=== PATIENT | male | born 1945 | race Caucasian/White ===

== ENCOUNTER 2019-07-22 19:50 | Inpatient (IN) ==
[2019-07-22] MEDS ORDERED: Naloxone 0.4 MG/ML INJ IVP PRN (21:56)
[2019-07-22 22:53] LABS: Calcium 8.1 mg/dL (8.6-10.3); Potassium 4.8 mEq/L (3.5-5.1)
[2019-07-23] MEDS ORDERED: 0.9 % Sodium Chloride 250 ML IVC ONE (01:09)
[2019-07-23] MEDS ORDERED: *HR* Heparin 5,000 UNIT/ML VIAL IVP PRN (01:44)
[2019-07-23] MEDS: Heparin 25,000 UNIT/250 ML D5W 25,000 UNIT/250 ML IV.SOLN IVC SCH (02:01)
[2019-07-23 05:06] LABS: Bilirubin,Urine Negative (Negative); Blood,Urine Large (Negative); Clarity,Urine Clear (Clear); Color,Urine Yellow (Yellow); Glucose,Urine (UA) Normal (Normal); Ketones,Urine Negative (Negative); Leukocyte Esterase,Urine Negative (Negative); Nitrite,Urine Negative (Negative); Protein,Urine 30 mg/dL (Neg-Trace); Specific Gravity,Urine 1.013 (1.010-1.025); Urobilinogen,Urine Normal (Normal)
[2019-07-23 05:07] LABS: Bacteria,Urine None Seen per hpf (None-Few); Hyaline Casts,Urine None Seen per lpf (None-Few); RBC,Urine 50-100 per hpf (0-3); Squamous Epithelial Cell,Urine Moderate per lpf (None-Few)
[2019-07-23 05:26] LABS: Basophils % 0.3 %; Eosinophils # 0.1 K/mcL (0.0-0.6); Eosinophils % 0.9 %; Hematocrit 24.2 % (37.5-50.1); Hemoglobin 7.4 g/dL (12.9-16.9); Immature Granulocytes % 0.3 % (0-4); Lymphocytes % 17.5 %; Mean Corpuscular HGB Conc 30.6 g/dL (31.6-35.5); Mean Corpuscular Hemoglobin 25.5 pg (28.0-33.3); Mean Corpuscular Volume 83.4 fL (83.0-100.0); Monocytes % 16.8 %; Neutrophils # 3.7 K/mcL (1.6-8.9); Platelet Count 133 K/mcL (140-400); Red Cell Distribution Width 15.9 % (11.5-14.5); Segmented Neutrophils % 64.2 %; White Blood Count 5.8 K/mcL (4.3-11.1)
[2019-07-23 05:34] LABS: Heparin anti-factor XA UFH 0.1 IU/mL (0.30-0.70); INR 1.3; Prothrombin Time 15.1 Seconds (9.4-12.1)
[2019-07-23 05:37] LABS: Activated Partial Thrombo Time 42.4 Seconds (26.0-36.0)
[2019-07-23 05:46] LABS: Potassium 4.5 mEq/L (3.5-5.1)
[2019-07-23 05:47] LABS: Albumin 2.9 g/dL (3.5-5.7); Bilirubin,Total 0.4 mg/dL (0.3-1.0); Calcium 8.1 mg/dL (8.6-10.3); Globulin 2.8 g/dL (2.4-3.5); Magnesium 1.9 mg/dL (1.6-2.6); Phosphorous 4.1 mg/dL (2.7-4.5); Total Protein 5.7 g/dL (6.4-8.9)
[2019-07-23] MEDS: 0.9 % Sodium Chloride 1,000 ML IVC SCH (08:53)
[2019-07-23] MEDS: Divalproex (24 HR) 500 MG TABLET PO SCH (08:55)
[2019-07-23] MEDS: Cholecalciferol (D-3) 1,000 UNIT (25MCG) TABLET PO SCH (08:55)
[2019-07-23] MEDS: OLANZapine 5 MG TAB.RAPDIS PO SCH (08:55)
[2019-07-23] MEDS: Acyclovir 200 MG CAPSULE PO SCH ×2 (09:07→22:42)
[2019-07-23 09:36] LABS: Adenovirus Not Detected (Not Detect); Bordetella Pertussis Not Detected (Not Detect); Chlamydophila pneumoniae Not Detected (Not Detect); Coronavirus 229E Not Detected (Not Detect); Coronavirus HKU1 Not Detected (Not Detect); Coronavirus NL63 Not Detected (Not Detect); Coronavirus OC43 Not Detected (Not Detect); Human Metapneumovirus Not Detected (Not Detect); Human Rhinovirus/Enterovirus Not Detected (Not Detect); Influenza A Subtype 2009 H1 Not Detected (Not Detect); Influenza A Untypeable Not Detected (Not Detect); Influenza B Not Detected (Not Detect); Mycoplasma pneumoniae Not Detected (Not Detect); Parainfluenza Virus 1 Not Detected (Not Detect); Parainfluenza Virus 2 Not Detected (Not Detect); Parainfluenza Virus 3 Not Detected (Not Detect); Parainfluenza Virus 4 Not Detected (Not Detect); Respiratory Syncytial Virus Not Detected (Not Detect)
[2019-07-23] MEDS ORDERED: Haloperidol Lactate 5 MG/ML VIAL IVP ONE (13:36)
[2019-07-23] MEDS ORDERED: Haloperidol Lactate 5 MG/ML VIAL ONE (13:37)
[2019-07-23] MEDS ORDERED: *HR* LORazepam 2 MG/ML VIAL IVP PRN (14:21)
[2019-07-23] MEDS: Haloperidol Lactate 5 MG/ML VIAL IVP PRN (15:15)
[2019-07-23] MEDS: Ziprasidone 20 MG in Water for inj. (sterile) 1 ML IM PRN (16:35)
[2019-07-23 17:55] LABS: Hematocrit 23.9 % (37.5-50.1); Hemoglobin 7.1 g/dL (12.9-16.9)
[2019-07-23 18:09] LABS: Calcium 8.1 mg/dL (8.6-10.3); Potassium 4.3 mEq/L (3.5-5.1)
[2019-07-23] MEDS: *HR* Heparin 5,000 UNIT/ML VIAL IVP PRN (18:26)
[2019-07-23] MEDS ORDERED: 0.9 % Sodium Chloride 250 ML ONE (22:18)
[2019-07-24] MEDS ORDERED: 0.9 % Sodium Chloride 250 ML ONE (00:58)
[2019-07-24] MEDS: Haloperidol Lactate 5 MG/ML VIAL IVP PRN ×3 (01:49→22:44)
[2019-07-24] MEDS: *HR* Heparin 5,000 UNIT/ML VIAL IVP PRN ×3 (01:50→23:22)
[2019-07-24] MEDS: Heparin 25,000 UNIT/250 ML D5W 25,000 UNIT/250 ML IV.SOLN IVC SCH ×2 (01:55→23:12)
[2019-07-24] MEDS: 0.9 % Sodium Chloride 1,000 ML IVC SCH ×3 (04:21→22:49)
[2019-07-24] MEDS: Acyclovir 200 MG CAPSULE PO SCH ×3 (07:49→21:30)
[2019-07-24] MEDS: OLANZapine 5 MG TAB.RAPDIS PO SCH (07:49)
[2019-07-24] MEDS: Cholecalciferol (D-3) 1,000 UNIT (25MCG) TABLET PO SCH (07:50)
[2019-07-24] MEDS: Divalproex (24 HR) 500 MG TABLET PO SCH (07:50)
[2019-07-24] MEDS: Loratadine 10 MG TABLET PO SCH (07:50)
[2019-07-24] MEDS ORDERED: Perflutren Lipid Microsphere 1.3 ML in 0.9 % Sodium Chloride 8.7 ML IVP ONE (09:07)
[2019-07-24 09:32] LABS: Basophils % 0.4 %; Eosinophils # 0.4 K/mcL (0.0-0.6); Eosinophils % 7.9 %; Hematocrit 33.7 % (37.5-50.1); Immature Granulocytes % 0.2 % (0-4); Lymphocytes # 0.9 K/mcL (0.6-4.6); Lymphocytes % 19.2 %; Mean Corpuscular HGB Conc 30.9 g/dL (31.6-35.5); Mean Corpuscular Hemoglobin 26.9 pg (28.0-33.3); Mean Corpuscular Volume 87.1 fL (83.0-100.0); Mean Platelet Volume 10.6 fL (9.4-12.4); Monocytes # 0.6 K/mcL (0.0-1.3); Monocytes % 12.3 %; Neutrophils # 2.9 K/mcL (1.6-8.9); Platelet Count 162 K/mcL (140-400); Red Blood Count 3.87 M/mcL (4.19-5.50); Red Cell Distribution Width 15.3 % (11.5-14.5); White Blood Count 4.8 K/mcL (4.3-11.1)
[2019-07-24 09:53] LABS: Calcium 8.6 mg/dL (8.6-10.3); Potassium 4.1 mEq/L (3.5-5.1)
[2019-07-24 09:55] LABS: Hemoglobin 10.4 g/dL (12.9-16.9)
[2019-07-24] MEDS ORDERED: DiphenhydraMINE CREAM 28.4 GM TUBE TP PRN (17:29)
[2019-07-25] MEDS: Haloperidol Lactate 5 MG/ML VIAL IVP PRN (05:08)
[2019-07-25] MEDS ORDERED: Haloperidol Lactate 5 MG/ML VIAL IVP ONE (05:44)
[2019-07-25] MEDS ORDERED: *HR* Promethazine 25 MG/ML VIAL IVP ONE (05:48)
[2019-07-25 06:35] LABS: Basophils % 0.3 %; Eosinophils # 0.5 K/mcL (0.0-0.6); Eosinophils % 6.7 %; Hematocrit 32.8 % (37.5-50.1); Hemoglobin 10.1 g/dL (12.9-16.9); Immature Granulocytes % 0.4 % (0-4); Immature Reticulocyte % 5.2 % (11.0-38.0); Lymphocytes # 3.1 K/mcL (0.6-4.6); Lymphocytes % 44.4 %; Mean Corpuscular HGB Conc 30.8 g/dL (31.6-35.5); Mean Corpuscular Hemoglobin 26.4 pg (28.0-33.3); Mean Corpuscular Volume 85.6 fL (83.0-100.0); Mean Platelet Volume 10.7 fL (9.4-12.4); Monocytes # 0.8 K/mcL (0.0-1.3); Monocytes % 11.3 %; Neutrophils # 2.6 K/mcL (1.6-8.9); Platelet Count 189 K/mcL (140-400); Red Blood Count 3.83 M/mcL (4.19-5.50); Red Cell Distribution Width 15.4 % (11.5-14.5); Retculocyte # 0.02 M/mcL (0.05-0.10); Reticulocyte % 0.6 % (1.6-2.8); Segmented Neutrophils % 36.9 %; White Blood Count 7.1 K/mcL (4.3-11.1)
[2019-07-25 06:58] LABS: Calcium 8.6 mg/dL (8.6-10.3); Phosphorous 2.3 mg/dL (2.7-4.5); Potassium 4.2 mEq/L (3.5-5.1)
[2019-07-25 07:24] LABS: Folate > 22.3 ng/mL (3.0-16.0); Vitamin B12 1455 pg/mL (250-1100)
[2019-07-25] MEDS: Divalproex (24 HR) 500 MG TABLET PO SCH (07:27)
[2019-07-25] MEDS: Acyclovir 200 MG CAPSULE PO SCH (07:27)
[2019-07-25] MEDS: OLANZapine 5 MG TAB.RAPDIS PO SCH (07:27)
[2019-07-25] MEDS: Cholecalciferol (D-3) 1,000 UNIT (25MCG) TABLET PO SCH (07:28)
[2019-07-25] MEDS: Loratadine 10 MG TABLET PO SCH (07:30)
[2019-07-25] MEDS: Heparin 25,000 UNIT/250 ML D5W 25,000 UNIT/250 ML IV.SOLN IVC SCH (07:31)
[2019-07-25] MEDS ORDERED: SODIUM CHLORIDE/NAHCO3/KCL/PEG 4,000 ML SOLN.RECON PO ONE (17:00)
[2019-07-25] MEDS: 0.9 % Sodium Chloride 1,000 ML IVC SCH (17:08)
[2019-07-26] MEDS: Heparin 25,000 UNIT/250 ML D5W 25,000 UNIT/250 ML IV.SOLN IVC SCH ×2 (01:52→19:21)
[2019-07-26] MEDS: Haloperidol Lactate 5 MG/ML VIAL IVP PRN ×2 (01:52→08:30)
[2019-07-26] MEDS: Divalproex (24 HR) 500 MG TABLET PO SCH (08:44)
[2019-07-26] MEDS: OLANZapine 5 MG TAB.RAPDIS PO SCH (08:44)
[2019-07-26] MEDS: Loratadine 10 MG TABLET PO SCH (08:45)
[2019-07-26] MEDS: Cholecalciferol (D-3) 1,000 UNIT (25MCG) TABLET PO SCH (08:46)
[2019-07-26 09:00] LABS: Basophils % 0.2 %; Eosinophils # 0.4 K/mcL (0.0-0.6); Eosinophils % 7.3 %; Hematocrit 31.5 % (37.5-50.1); Hemoglobin 9.8 g/dL (12.9-16.9); Immature Granulocytes % 0.4 % (0-4); Lymphocytes # 1.2 K/mcL (0.6-4.6); Lymphocytes % 24.8 %; Mean Corpuscular HGB Conc 31.1 g/dL (31.6-35.5); Mean Corpuscular Hemoglobin 26.4 pg (28.0-33.3); Mean Corpuscular Volume 84.9 fL (83.0-100.0); Mean Platelet Volume 10.1 fL (9.4-12.4); Monocytes # 0.6 K/mcL (0.0-1.3); Monocytes % 11.6 %; Neutrophils # 2.7 K/mcL (1.6-8.9); Platelet Count 217 K/mcL (140-400); Red Blood Count 3.71 M/mcL (4.19-5.50); Red Cell Distribution Width 15.5 % (11.5-14.5); Segmented Neutrophils % 55.7 %; White Blood Count 4.9 K/mcL (4.3-11.1)
[2019-07-26 09:07] LABS: INR 1.3
[2019-07-26 09:22] LABS: BUN/Creatinine Ratio 10 (6-26); Blood Urea Nitrogen 12 mg/dL (8-23); Calcium 8.2 mg/dL (8.6-10.3); Carbon Dioxide 22 mEq/L (23-29); Chloride 111 mEq/L (98-107); Glucose 118 mg/dL (70-105); Osmolality,Calculated 297 (280-300); Potassium 3.6 mEq/L (3.5-5.1); Sodium 143 mEq/L (136-145); Troponin I 4.37 ng/mL (< 0.04); eGFR For African Americans > 60 (> 60); eGFR For Non-African Americans 56 (> 60)
[2019-07-26] MEDS: Ziprasidone 20 MG in Water for inj. (sterile) 1 ML IM PRN (11:47)
[2019-07-26] MEDS ORDERED: *HR* LORazepam 2 MG/ML VIAL IVP ONE (12:55)
[2019-07-26] MEDS ORDERED: Propofol 500 MG/50 ML INFUS..BTL ONE (13:33)
[2019-07-26] MEDS ORDERED: 0.9 % Sodium Chloride 500 ML ONE (15:58)
[2019-07-26] MEDS: 0.9 % Sodium Chloride 1,000 ML IVC SCH (17:43)
[2019-07-26] MEDS: Acyclovir 600 MG in D5% in Water 100 ML IVPB SCH (20:09)
[2019-07-27 01:38] LABS: Basophils % 0.4 %; Eosinophils # 0.4 K/mcL (0.0-0.6); Eosinophils % 7.7 %; Hematocrit 30.2 % (37.5-50.1); Hemoglobin 9.3 g/dL (12.9-16.9); Immature Granulocytes % 0.2 % (0-4); Lymphocytes # 1.3 K/mcL (0.6-4.6); Lymphocytes % 25.8 %; Mean Corpuscular HGB Conc 30.8 g/dL (31.6-35.5); Mean Corpuscular Hemoglobin 26.2 pg (28.0-33.3); Mean Corpuscular Volume 85.1 fL (83.0-100.0); Monocytes # 0.5 K/mcL (0.0-1.3); Monocytes % 10.8 %; Neutrophils # 2.7 K/mcL (1.6-8.9); Platelet Count 215 K/mcL (140-400); Red Blood Count 3.55 M/mcL (4.19-5.50); Red Cell Distribution Width 15.5 % (11.5-14.5); Segmented Neutrophils % 55.1 %; White Blood Count 4.9 K/mcL (4.3-11.1)
[2019-07-27 01:58] LABS: BUN/Creatinine Ratio 10 (6-26); Blood Urea Nitrogen 12 mg/dL (8-23); Carbon Dioxide 20 mEq/L (23-29); Chloride 113 mEq/L (98-107); Glucose 81 mg/dL (70-105); Osmolality,Calculated 293 (280-300); Potassium 3.6 mEq/L (3.5-5.1); Sodium 142 mEq/L (136-145); eGFR For African Americans > 60 (> 60); eGFR For Non-African Americans 59 (> 60)
[2019-07-27] MEDS: *HR* Heparin 5,000 UNIT/ML VIAL IVP PRN (02:15)
[2019-07-27] MEDS: Acyclovir 600 MG in D5% in Water 100 ML IVPB SCH (06:31)
[2019-07-27] MEDS ORDERED: Aspirin 81 MG TAB.CHEW PO SCH (10:08)
[2019-07-27] MEDS ORDERED: 0.9 % Sodium Chloride 1,000 ML ONE (10:22)
[2019-07-27] MEDS: Cholecalciferol (D-3) 1,000 UNIT (25MCG) TABLET PO SCH (10:48)
[2019-07-27] MEDS: Divalproex (24 HR) 500 MG TABLET PO SCH (10:48)
[2019-07-27] MEDS: Loratadine 10 MG TABLET PO SCH (10:48)
[2019-07-27] MEDS: OLANZapine 5 MG TAB.RAPDIS PO SCH (10:48)
[2019-07-27] MEDS: 0.9 % Sodium Chloride 1,000 ML IVC SCH (10:50)
[2019-07-27] MEDS ORDERED: Acyclovir 600 MG in D5% in Water 100 ML IVPB SCH (16:00)
[2019-07-27 16:21] VITALS: BP 129/72
== END 2019-07-27 17:42 | disposition home health service (06) | DRG 190 ==
LOC: 2ANU → SUATTDRO 21:56
PROVIDERS: ADMIT Internal Medicine; ATTEND Internal Medicine

== ENCOUNTER 2019-09-13 13:51 | Inpatient (IN) ==
[2019-09-13] MEDS ORDERED: Naloxone 0.4 MG/ML INJ IVP PRN (18:27)
[2019-09-13] MEDS: 0.9 % Sodium Chloride 1,000 ML IVC SCH (19:42)
[2019-09-13] MEDS: Ondansetron 4 MG/2 ML VIAL IVP PRN (19:42)
[2019-09-14] MEDS ORDERED: Ondansetron 4 MG/2 ML VIAL IVP SCH
[2019-09-14] MEDS ORDERED: *HR* Heparin 5,000 UNIT/ML VIAL SQ SCH
[2019-09-14] MEDS ORDERED: Nitroglycerin 0.4 MG TAB.SUBL SL PRN (03:39)
[2019-09-14] MEDS: 0.9 % Sodium Chloride 1,000 ML IVC SCH (03:52)
[2019-09-14] MEDS: Ondansetron 4 MG/2 ML VIAL IVP PRN ×2 (04:09→16:56)
[2019-09-14 04:11] LABS: Basophils % 0.3 %; Eosinophils # 0.3 K/mcL (0.0-0.6); Eosinophils % 2.5 %; Hematocrit 34.8 % (37.5-50.1); Hemoglobin 10.6 g/dL (12.9-16.9); Immature Granulocytes % 0.4 % (0-4); Lymphocytes # 1.7 K/mcL (0.6-4.6); Lymphocytes % 15.1 %; Mean Corpuscular HGB Conc 30.5 g/dL (31.6-35.5); Mean Corpuscular Hemoglobin 25.2 pg (28.0-33.3); Mean Corpuscular Volume 82.7 fL (83.0-100.0); Mean Platelet Volume 9.9 fL (9.4-12.4); Monocytes # 0.9 K/mcL (0.0-1.3); Monocytes % 8.6 %; Platelet Count 326 K/mcL (140-400); Red Blood Count 4.21 M/mcL (4.19-5.50); Red Cell Distribution Width 18.6 % (11.5-14.5); Segmented Neutrophils % 73.1 %
[2019-09-14 04:26] LABS: Potassium 3.5 mEq/L (3.5-5.1)
[2019-09-14] MEDS ORDERED: cefTRIAXone 1,000 MG in Water for inj. (sterile) 10 ML IVP SCH (09:00)
[2019-09-14] MEDS: cefTRIAXone 1,000 MG in 0.9 % Sodium Chloride Mini Bag 100 ML IVPB SCH (10:41)
[2019-09-14] MEDS: *HR* Heparin 5,000 UNIT/ML VIAL SQ SCH ×2 (14:19→22:15)
[2019-09-15 05:05] LABS: Basophils # 0.1 K/mcL (0.0-0.2); Basophils % 0.4 %; Eosinophils # 0.5 K/mcL (0.0-0.6); Eosinophils % 3.7 %; Hematocrit 35.1 % (37.5-50.1); Immature Granulocytes % 0.5 % (0-4); Lymphocytes # 1.3 K/mcL (0.6-4.6); Lymphocytes % 9.6 %; Mean Corpuscular HGB Conc 31.3 g/dL (31.6-35.5); Mean Corpuscular Volume 79.8 fL (83.0-100.0); Mean Platelet Volume 10.1 fL (9.4-12.4); Monocytes # 0.9 K/mcL (0.0-1.3); Monocytes % 6.6 %; Neutrophils # 10.5 K/mcL (1.6-8.9); Platelet Count 350 K/mcL (140-400); Red Cell Distribution Width 18.5 % (11.5-14.5); Segmented Neutrophils % 79.2 %; White Blood Count 13.2 K/mcL (4.3-11.1)
[2019-09-15 05:28] LABS: Calcium 9.8 mg/dL (8.6-10.3); Potassium 3.7 mEq/L (3.5-5.1)
[2019-09-15] MEDS: *HR* Heparin 5,000 UNIT/ML VIAL SQ SCH ×3 (05:37→20:16)
[2019-09-15] MEDS: Ondansetron 4 MG/2 ML VIAL IVP PRN (05:44)
[2019-09-15] MEDS: Cholecalciferol (D-3) 1,000 UNIT (25MCG) TABLET PO SCH (08:33)
[2019-09-15] MEDS: OLANZapine 10 MG TAB.RAPDIS PO SCH (08:33)
[2019-09-15] MEDS: Aspirin 81 MG TAB.CHEW PO SCH (08:33)
[2019-09-15] MEDS: Cyanocobalamin (B-12) 1,000 MCG TABLET PO SCH (08:34)
[2019-09-15] MEDS: cefTRIAXone 1,000 MG in 0.9 % Sodium Chloride Mini Bag 100 ML IVPB SCH (08:34)
[2019-09-15] MEDS: Finasteride 5 MG TABLET PO SCH (08:34)
[2019-09-15] MEDS: Divalproex (12 HR) 500 MG TABLET PO SCH (08:34)
[2019-09-16] MEDS: *HR* Heparin 5,000 UNIT/ML VIAL SQ SCH ×3 (05:52→21:46)
[2019-09-16] MEDS: Haloperidol Lactate 5 MG/ML VIAL IM PRN (11:07)
[2019-09-16] MEDS: Divalproex (12 HR) 500 MG TABLET PO SCH ×3 (11:09→21:45)
[2019-09-16] MEDS: Aspirin 81 MG TAB.CHEW PO SCH ×2 (11:09→14:41)
[2019-09-16] MEDS: OLANZapine 10 MG TAB.RAPDIS PO SCH ×3 (11:10→12:21)
[2019-09-16] MEDS: Cholecalciferol (D-3) 1,000 UNIT (25MCG) TABLET PO SCH ×2 (11:10→14:41)
[2019-09-16] MEDS: Finasteride 5 MG TABLET PO SCH ×2 (11:10→12:16)
[2019-09-16] MEDS: Cyanocobalamin (B-12) 1,000 MCG TABLET PO SCH ×2 (11:10→14:42)
[2019-09-16 12:23] LABS: Basophils % 0.4 %; Eosinophils # 1.1 K/mcL (0.0-0.6); Eosinophils % 10.7 %; Hematocrit 34.3 % (37.5-50.1); Hemoglobin 10.2 g/dL (12.9-16.9); Immature Granulocytes % 0.4 % (0-4); Lymphocytes # 2.6 K/mcL (0.6-4.6); Lymphocytes % 24.9 %; Mean Corpuscular HGB Conc 29.7 g/dL (31.6-35.5); Mean Corpuscular Hemoglobin 24.9 pg (28.0-33.3); Mean Corpuscular Volume 83.7 fL (83.0-100.0); Mean Platelet Volume 10.2 fL (9.4-12.4); Monocytes # 0.7 K/mcL (0.0-1.3); Monocytes % 6.7 %; Neutrophils # 5.8 K/mcL (1.6-8.9); Platelet Count 317 K/mcL (140-400); Red Cell Distribution Width 18.4 % (11.5-14.5); Segmented Neutrophils % 56.9 %; White Blood Count 10.3 K/mcL (4.3-11.1)
[2019-09-16 12:41] LABS: Calcium 9.5 mg/dL (8.6-10.3); Potassium 3.3 mEq/L (3.5-5.1)
[2019-09-16] MEDS ORDERED: Divalproex (12 HR) 500 MG TABLET PO SCH (21:00)
[2019-09-17] MEDS: *HR* Heparin 5,000 UNIT/ML VIAL SQ SCH ×4 (05:07→22:01)
[2019-09-17] MEDS: Haloperidol Lactate 5 MG/ML VIAL IM PRN (05:43)
[2019-09-17 07:10] LABS: Albumin 3.4 g/dL (3.5-5.7); Albumin/Globulin Ratio 0.9 (1.1-2.2); Bilirubin,Indirect 0.2 mg/dL (0.0-1.0); Bilirubin,Total 0.2 mg/dL (0.3-1.0); Globulin 3.7 g/dL (2.4-3.5); Total Protein 7.1 g/dL (6.4-8.9)
[2019-09-17 07:13] LABS: Albumin 3.4 g/dL (3.5-5.7); Albumin/Globulin Ratio 0.9 (1.1-2.2); Bilirubin,Total 0.2 mg/dL (0.3-1.0); Calcium 9.1 mg/dL (8.6-10.3); Globulin 3.7 g/dL (2.4-3.5); Potassium 3.4 mEq/L (3.5-5.1); Total Protein 7.1 g/dL (6.4-8.9)
[2019-09-17] MEDS: Cholecalciferol (D-3) 1,000 UNIT (25MCG) TABLET PO SCH (12:31)
[2019-09-17] MEDS: Cyanocobalamin (B-12) 1,000 MCG TABLET PO SCH (12:32)
[2019-09-17] MEDS: Divalproex (12 HR) 500 MG TABLET PO SCH ×2 (12:32→21:29)
[2019-09-17] MEDS: Finasteride 5 MG TABLET PO SCH (12:32)
[2019-09-17] MEDS: Aspirin 81 MG TAB.CHEW PO SCH (12:32)
[2019-09-17] MEDS ORDERED: 0.9 % Sodium Chloride 250 ML IVC ONE (15:30)
[2019-09-17] MEDS ORDERED: 0.9 % Sodium Chloride 1,000 ML ONE (15:40)
[2019-09-17] MEDS: Haloperidol Lactate 5 MG/ML VIAL IVP PRN (21:28)
[2019-09-17] MEDS: OLANZapine 10 MG TAB.RAPDIS PO SCH (21:29)
[2019-09-17] MEDS ORDERED: *HR* Promethazine 25 MG/ML VIAL ONE (22:23)
[2019-09-17] MEDS: *HR* Promethazine 25 MG/ML VIAL IVP ONE ×2 (23:05→23:06)
[2019-09-18] MEDS: Haloperidol Lactate 5 MG/ML VIAL IVP PRN (03:44)
[2019-09-18] MEDS: *HR* Heparin 5,000 UNIT/ML VIAL SQ SCH ×3 (06:41→21:54)
[2019-09-18 06:56] LABS: Calcium 8.6 mg/dL (8.6-10.3); Potassium 3.6 mEq/L (3.5-5.1)
[2019-09-18] MEDS: Cyanocobalamin (B-12) 1,000 MCG TABLET PO SCH (10:04)
[2019-09-18] MEDS: Cholecalciferol (D-3) 1,000 UNIT (25MCG) TABLET PO SCH (10:04)
[2019-09-18] MEDS: Divalproex (12 HR) 500 MG TABLET PO SCH ×2 (10:04→22:04)
[2019-09-18] MEDS: Finasteride 5 MG TABLET PO SCH (10:04)
[2019-09-18] MEDS: Aspirin 81 MG TAB.CHEW PO SCH (10:05)
[2019-09-18] MEDS: OLANZapine 10 MG TAB.RAPDIS PO SCH (22:05)
[2019-09-19] MEDS: *HR* Heparin 5,000 UNIT/ML VIAL SQ SCH ×3 (05:57→21:10)
[2019-09-19] MEDS: Divalproex (12 HR) 500 MG TABLET PO SCH ×2 (07:26→20:58)
[2019-09-19] MEDS: Finasteride 5 MG TABLET PO SCH (07:27)
[2019-09-19] MEDS: Cholecalciferol (D-3) 1,000 UNIT (25MCG) TABLET PO SCH (07:27)
[2019-09-19] MEDS: Aspirin 81 MG TAB.CHEW PO SCH (07:28)
[2019-09-19] MEDS: Cyanocobalamin (B-12) 1,000 MCG TABLET PO SCH (07:28)
[2019-09-19 08:54] LABS: Hematocrit 32.4 % (37.5-50.1); Hemoglobin 10.1 g/dL (12.9-16.9); Mean Corpuscular HGB Conc 31.2 g/dL (31.6-35.5); Mean Corpuscular Hemoglobin 25.3 pg (28.0-33.3); Mean Corpuscular Volume 81.2 fL (83.0-100.0); Platelet Count 299 K/mcL (140-400); Red Blood Count 3.99 M/mcL (4.19-5.50); Red Cell Distribution Width 18.3 % (11.5-14.5); White Blood Count 11.1 K/mcL (4.3-11.1)
[2019-09-19 09:14] LABS: Calcium 8.8 mg/dL (8.6-10.3); Potassium 3.9 mEq/L (3.5-5.1)
[2019-09-19] MEDS: OLANZapine 10 MG TAB.RAPDIS PO SCH (20:57)
[2019-09-20] MEDS: *HR* Heparin 5,000 UNIT/ML VIAL SQ SCH ×3 (06:25→22:49)
[2019-09-20 07:25] LABS: Hematocrit 30.3 % (37.5-50.1); Hemoglobin 9.3 g/dL (12.9-16.9); Mean Corpuscular HGB Conc 30.7 g/dL (31.6-35.5); Mean Corpuscular Hemoglobin 24.8 pg (28.0-33.3); Mean Corpuscular Volume 80.8 fL (83.0-100.0); Mean Platelet Volume 10.4 fL (9.4-12.4); Platelet Count 278 K/mcL (140-400); Red Blood Count 3.75 M/mcL (4.19-5.50); Red Cell Distribution Width 18.6 % (11.5-14.5); White Blood Count 10.3 K/mcL (4.3-11.1)
[2019-09-20 07:43] LABS: Calcium 8.6 mg/dL (8.6-10.3)
[2019-09-20] MEDS: Cholecalciferol (D-3) 1,000 UNIT (25MCG) TABLET PO SCH (14:00)
[2019-09-20] MEDS: Cyanocobalamin (B-12) 1,000 MCG TABLET PO SCH (14:00)
[2019-09-20] MEDS: Divalproex (12 HR) 500 MG TABLET PO SCH ×2 (14:04→22:49)
[2019-09-20] MEDS: Finasteride 5 MG TABLET PO SCH (14:05)
[2019-09-20] MEDS: Aspirin 81 MG TAB.CHEW PO SCH (14:06)
[2019-09-20] MEDS: OLANZapine 10 MG TAB.RAPDIS PO SCH (22:50)
[2019-09-20] MEDS: 0.9 % Sodium Chloride 500 ML IVC SCH (22:51)
[2019-09-21 04:51] LABS: Calcium 8.9 mg/dL (8.6-10.3); Potassium 4.6 mEq/L (3.5-5.1)
[2019-09-21] MEDS: 0.9 % Sodium Chloride 500 ML IVC SCH ×3 (06:25→19:29)
[2019-09-21] MEDS: *HR* Heparin 5,000 UNIT/ML VIAL SQ SCH ×3 (06:25→20:46)
[2019-09-21] MEDS: Finasteride 5 MG TABLET PO SCH (10:41)
[2019-09-21] MEDS: Cyanocobalamin (B-12) 1,000 MCG TABLET PO SCH (10:41)
[2019-09-21] MEDS: Divalproex (12 HR) 500 MG TABLET PO SCH ×2 (10:41→20:30)
[2019-09-21] MEDS: Aspirin 81 MG TAB.CHEW PO SCH (10:41)
[2019-09-21] MEDS: Cholecalciferol (D-3) 1,000 UNIT (25MCG) TABLET PO SCH (10:42)
[2019-09-21] MEDS: OLANZapine 10 MG TAB.RAPDIS PO SCH (20:27)
[2019-09-22] MEDS: *HR* Heparin 5,000 UNIT/ML VIAL SQ SCH (05:16)
[2019-09-22] MEDS: 0.9 % Sodium Chloride 500 ML IVC SCH (05:17)
[2019-09-22] MEDS: Divalproex (12 HR) 500 MG TABLET PO SCH ×2 (08:37→13:28)
[2019-09-22] MEDS: Aspirin 81 MG TAB.CHEW PO SCH ×2 (08:37→13:30)
[2019-09-22] MEDS: Cholecalciferol (D-3) 1,000 UNIT (25MCG) TABLET PO SCH ×2 (08:38→13:30)
[2019-09-22] MEDS: Cyanocobalamin (B-12) 1,000 MCG TABLET PO SCH ×2 (08:38→13:30)
[2019-09-22] MEDS: Finasteride 5 MG TABLET PO SCH ×2 (08:38→13:29)
[2019-09-22 10:55] VITALS: BP 114/60
[2019-09-22] MEDS: Haloperidol Lactate 5 MG/ML VIAL IVP PRN (14:57)
== END 2019-09-22 15:58 | DRG 469 ==
LOC: 2ANU → SUATTDRO 18:27
PROVIDERS: ADMIT Internal Medicine; ATTEND Internal Medicine

== ENCOUNTER 2019-10-11 17:51 | Inpatient (IN) ==
[2019-10-11 20:39] LABS: Basophils % 0.2 %; Eosinophils % 0.1 %; Hematocrit 30.2 % (37.5-50.1); Hemoglobin 9.7 g/dL (12.9-16.9); Immature Granulocytes % 0.6 % (0-4); Lymphocytes # 1.1 K/mcL (0.6-4.6); Lymphocytes % 6.9 %; Mean Corpuscular HGB Conc 32.1 g/dL (31.6-35.5); Mean Corpuscular Hemoglobin 25.7 pg (28.0-33.3); Mean Corpuscular Volume 79.9 fL (83.0-100.0); Mean Platelet Volume 9.4 fL (9.4-12.4); Monocytes # 0.6 K/mcL (0.0-1.3); Monocytes % 3.9 %; Neutrophils # 14.2 K/mcL (1.6-8.9); Platelet Count 470 K/mcL (140-400); Red Blood Count 3.78 M/mcL (4.19-5.50); Red Cell Distribution Width 22.9 % (11.5-14.5); Segmented Neutrophils % 88.3 %; White Blood Count 16.1 K/mcL (4.3-11.1)
[2019-10-11 21:10] LABS: Blood Urea Nitrogen > 130 mg/dL (8-23); Calcium 10.2 mg/dL (8.6-10.3); Carbon Dioxide 18 mEq/L (23-29); Chloride 108 mEq/L (98-107); Glucose 141 mg/dL (70-105); Potassium 5.7 mEq/L (3.5-5.1); Sodium 142 mEq/L (136-145); eGFR For African Americans 5 (> 60); eGFR For Non-African Americans 4 (> 60)
[2019-10-11 21:16] LABS: Bilirubin,Urine Negative (Negative); Blood,Urine Large (Negative); Clarity,Urine Turbid (Clear); Color,Urine Other (Yellow); Glucose,Urine (UA) 100 mg/dL (Normal); Ketones,Urine Trace mg/dL (Negative); Leukocyte Esterase,Urine Moderate (Negative); Nitrite,Urine Negative (Negative); Protein,Urine >=1000 mg/dL (Neg-Trace); Specific Gravity,Urine 1.025 (1.010-1.025); Urobilinogen,Urine Normal (Normal)
[2019-10-11 21:18] LABS: Bacteria,Urine None Seen per hpf (None-Few); Hyaline Casts,Urine None Seen per lpf (None-Few); RBC,Urine TNTC per hpf (0-3); Squamous Epithelial Cell,Urine Few per lpf (None-Few); WBC,Urine TNTC per hpf (0-3)
[2019-10-11] MEDS ORDERED: Naloxone 0.4 MG/ML INJ IVP PRN (22:54)
[2019-10-11] MEDS: *HR* Heparin 5,000 UNIT/ML VIAL SQ SCH (23:17)
[2019-10-12] MEDS: 0.9 % Sodium Chloride 1,000 ML IVC SCH ×4 (02:49→19:16)
[2019-10-12 04:56] LABS: Basophils % 0.3 %; Eosinophils # 0.1 K/mcL (0.0-0.6); Eosinophils % 0.6 %; Hematocrit 32.5 % (37.5-50.1); Hemoglobin 10.3 g/dL (12.9-16.9); Immature Granulocytes % 0.8 % (0-4); Lymphocytes # 1.1 K/mcL (0.6-4.6); Lymphocytes % 8.2 %; Mean Corpuscular HGB Conc 31.7 g/dL (31.6-35.5); Mean Corpuscular Hemoglobin 25.6 pg (28.0-33.3); Mean Corpuscular Volume 80.8 fL (83.0-100.0); Mean Platelet Volume 9.5 fL (9.4-12.4); Monocytes # 0.5 K/mcL (0.0-1.3); Neutrophils # 11.7 K/mcL (1.6-8.9); Platelet Count 521 K/mcL (140-400); Red Blood Count 4.02 M/mcL (4.19-5.50); Red Cell Distribution Width 22.8 % (11.5-14.5); Segmented Neutrophils % 86.1 %; White Blood Count 13.6 K/mcL (4.3-11.1)
[2019-10-12 05:16] LABS: Blood Urea Nitrogen > 130 mg/dL (8-23); Calcium 9.5 mg/dL (8.6-10.3); Carbon Dioxide 19 mEq/L (23-29); Chloride 109 mEq/L (98-107); Glucose 134 mg/dL (70-105); Potassium 5.7 mEq/L (3.5-5.1); Sodium 145 mEq/L (136-145); eGFR For African Americans 6 (> 60); eGFR For Non-African Americans 5 (> 60)
[2019-10-12] MEDS: *HR* Heparin 5,000 UNIT/ML VIAL SQ SCH ×3 (05:32→20:20)
[2019-10-12] MEDS ORDERED: Cyanocobalamin (B-12) 1,000 MCG TABLET PO SCH (09:00)
[2019-10-12] MEDS ORDERED: OLANZapine 5 MG TAB.RAPDIS PO SCH (09:00)
[2019-10-12] MEDS ORDERED: Cholecalciferol (D-3) 1,000 UNIT (25MCG) TABLET PO SCH (09:00)
[2019-10-12] MEDS ORDERED: Ondansetron 4 MG/2 ML VIAL IVP PRN ×2 (09:00→11:00)
[2019-10-12] MEDS ORDERED: Aspirin 81 MG TAB.CHEW PO SCH (09:00)
[2019-10-12] MEDS ORDERED: Finasteride 5 MG TABLET PO SCH (09:00)
[2019-10-12] MEDS ORDERED: Ondansetron 4 MG/2 ML VIAL ONE (09:13)
[2019-10-12] MEDS ORDERED: 0.9 % Sodium Chloride 1,000 ML IVC SCH (09:32)
[2019-10-12] MEDS ORDERED: Divalproex (12 HR) 500 MG TABLET PO SCH ×2 (09:45→21:00)
[2019-10-12] MEDS ORDERED: Naloxone 0.4 MG/ML INJ IVP PRN (11:00)
[2019-10-12] MEDS ORDERED: cefTRIAXone 2,000 MG in Water for inj. (sterile) 20 ML IVP SCH ×2 (18:00)
[2019-10-12 18:40] LABS: Calcium 8.2 mg/dL (8.6-10.3); Magnesium 1.7 mg/dL (1.6-2.6); Phosphorous 7.5 mg/dL (2.7-4.5); Potassium 4.7 mEq/L (3.5-5.1)
[2019-10-12] MEDS: Divalproex (12 HR) 500 MG TABLET PO SCH (20:19)
[2019-10-12 21:15] LABS: Calcium 8.4 mg/dL (8.6-10.3); Magnesium 1.7 mg/dL (1.6-2.6); Phosphorous 7.2 mg/dL (2.7-4.5); Potassium 4.6 mEq/L (3.5-5.1)
[2019-10-13] MEDS: 0.9 % Sodium Chloride 1,000 ML IVC SCH ×2 (02:58→11:10)
[2019-10-13] MEDS: *HR* Heparin 5,000 UNIT/ML VIAL SQ SCH ×3 (06:21→22:53)
[2019-10-13 06:57] LABS: Basophils % 0.5 %; Eosinophils # 0.4 K/mcL (0.0-0.6); Eosinophils % 4.5 %; Hematocrit 27.1 % (37.5-50.1); Immature Granulocytes % 1.4 % (0-4); Lymphocytes # 1.3 K/mcL (0.6-4.6); Mean Corpuscular HGB Conc 31.4 g/dL (31.6-35.5); Mean Corpuscular Hemoglobin 25.7 pg (28.0-33.3); Mean Corpuscular Volume 81.9 fL (83.0-100.0); Mean Platelet Volume 9.4 fL (9.4-12.4); Monocytes # 0.5 K/mcL (0.0-1.3); Monocytes % 5.4 %; Neutrophils # 6.5 K/mcL (1.6-8.9); Platelet Count 418 K/mcL (140-400); Red Blood Count 3.31 M/mcL (4.19-5.50); Red Cell Distribution Width 22.9 % (11.5-14.5); Segmented Neutrophils % 73.2 %; White Blood Count 8.9 K/mcL (4.3-11.1)
[2019-10-13 06:59] LABS: Hemoglobin 8.5 g/dL (12.9-16.9)
[2019-10-13 07:17] LABS: Calcium 8.3 mg/dL (8.6-10.3); Magnesium 1.6 mg/dL (1.6-2.6); Phosphorous 6.5 mg/dL (2.7-4.5); Potassium 4.5 mEq/L (3.5-5.1)
[2019-10-13] MEDS: Finasteride 5 MG TABLET PO SCH (08:34)
[2019-10-13] MEDS: Aspirin 81 MG TAB.CHEW PO SCH (08:36)
[2019-10-13] MEDS: Divalproex (12 HR) 500 MG TABLET PO SCH ×2 (08:36→22:51)
[2019-10-13] MEDS: Cholecalciferol (D-3) 1,000 UNIT (25MCG) TABLET PO SCH (08:38)
[2019-10-13] MEDS: Cyanocobalamin (B-12) 1,000 MCG TABLET PO SCH (08:40)
[2019-10-13] MEDS: OLANZapine 5 MG TAB.RAPDIS PO SCH (08:44)
[2019-10-13 14:32] LABS: Calcium 8.5 mg/dL (8.6-10.3); Magnesium 1.6 mg/dL (1.6-2.6); Phosphorous 6.1 mg/dL (2.7-4.5); Potassium 4.7 mEq/L (3.5-5.1)
[2019-10-13] MEDS: cefTRIAXone 2,000 MG in 0.9 % Sodium Chloride Mini Bag 100 ML IVPB SCH (15:27)
[2019-10-13 23:26] LABS: Calcium 7.9 mg/dL (8.6-10.3); Magnesium 1.4 mg/dL (1.6-2.6); Phosphorous 5.8 mg/dL (2.7-4.5); Potassium 4.8 mEq/L (3.5-5.1)
[2019-10-14 03:43] LABS: Basophils % 0.3 %; Eosinophils # 0.7 K/mcL (0.0-0.6); Eosinophils % 6.9 %; Hematocrit 23.9 % (37.5-50.1); Hemoglobin 7.2 g/dL (12.9-16.9); Immature Granulocytes % 1.3 % (0-4); Lymphocytes # 1.9 K/mcL (0.6-4.6); Lymphocytes % 18.5 %; Mean Corpuscular HGB Conc 30.1 g/dL (31.6-35.5); Mean Corpuscular Hemoglobin 25.5 pg (28.0-33.3); Mean Corpuscular Volume 84.8 fL (83.0-100.0); Mean Platelet Volume 9.9 fL (9.4-12.4); Monocytes # 0.6 K/mcL (0.0-1.3); Monocytes % 6.3 %; Neutrophils # 6.8 K/mcL (1.6-8.9); Platelet Count 376 K/mcL (140-400); Red Blood Count 2.82 M/mcL (4.19-5.50); Red Cell Distribution Width 22.9 % (11.5-14.5); Segmented Neutrophils % 66.7 %; White Blood Count 10.2 K/mcL (4.3-11.1)
[2019-10-14 03:51] LABS: Calcium 8.1 mg/dL (8.6-10.3); Magnesium 1.4 mg/dL (1.6-2.6); Phosphorous 5.7 mg/dL (2.7-4.5); Potassium 4.9 mEq/L (3.5-5.1)
[2019-10-14] MEDS: *HR* Heparin 5,000 UNIT/ML VIAL SQ SCH ×3 (06:49→20:58)
[2019-10-14] MEDS: cefTRIAXone 2,000 MG in 0.9 % Sodium Chloride Mini Bag 100 ML IVPB SCH (10:40)
[2019-10-14] MEDS: Cyanocobalamin (B-12) 1,000 MCG TABLET PO SCH (10:41)
[2019-10-14] MEDS: OLANZapine 5 MG TAB.RAPDIS PO SCH (10:41)
[2019-10-14] MEDS: Aspirin 81 MG TAB.CHEW PO SCH (10:42)
[2019-10-14] MEDS: Cholecalciferol (D-3) 1,000 UNIT (25MCG) TABLET PO SCH (10:42)
[2019-10-14] MEDS: Divalproex (12 HR) 500 MG TABLET PO SCH ×2 (10:42→20:59)
[2019-10-14] MEDS: Finasteride 5 MG TABLET PO SCH (10:42)
[2019-10-14] MEDS: D5% in Water 1,000 ML IVC SCH (17:30)
[2019-10-14] MEDS ORDERED: Haloperidol Lactate 5 MG/ML VIAL IVP ONE (20:03)
[2019-10-15 05:24] LABS: Basophils % 0.4 %; Eosinophils # 0.7 K/mcL (0.0-0.6); Eosinophils % 9.5 %; Hematocrit 23.7 % (37.5-50.1); Hemoglobin 7.5 g/dL (12.9-16.9); Immature Granulocytes % 1.9 % (0-4); Lymphocytes # 1.7 K/mcL (0.6-4.6); Lymphocytes % 22.6 %; Mean Corpuscular HGB Conc 31.6 g/dL (31.6-35.5); Mean Corpuscular Hemoglobin 26.1 pg (28.0-33.3); Mean Corpuscular Volume 82.6 fL (83.0-100.0); Mean Platelet Volume 9.2 fL (9.4-12.4); Monocytes # 0.4 K/mcL (0.0-1.3); Monocytes % 5.9 %; Neutrophils # 4.4 K/mcL (1.6-8.9); Platelet Count 357 K/mcL (140-400); Red Blood Count 2.87 M/mcL (4.19-5.50); Red Cell Distribution Width 22.5 % (11.5-14.5); Segmented Neutrophils % 59.7 %; White Blood Count 7.4 K/mcL (4.3-11.1)
[2019-10-15 05:39] LABS: Calcium 8.1 mg/dL (8.6-10.3); Magnesium 1.7 mg/dL (1.6-2.6); Phosphorous 4.6 mg/dL (2.7-4.5); Potassium 4.1 mEq/L (3.5-5.1)
[2019-10-15 06:16] LABS: Folate > 22.3 ng/mL (3.0-16.0); Vitamin B12 1420 pg/mL (250-1100)
[2019-10-15] MEDS: D5% in Water 1,000 ML IVC SCH (07:25)
[2019-10-15] MEDS: *HR* Heparin 5,000 UNIT/ML VIAL SQ SCH ×2 (07:25→14:04)
[2019-10-15] MEDS: Finasteride 5 MG TABLET PO SCH (08:42)
[2019-10-15] MEDS: Cyanocobalamin (B-12) 1,000 MCG TABLET PO SCH (08:42)
[2019-10-15] MEDS: OLANZapine 5 MG TAB.RAPDIS PO SCH (08:42)
[2019-10-15] MEDS: Aspirin 81 MG TAB.CHEW PO SCH (08:43)
[2019-10-15] MEDS: Divalproex (12 HR) 500 MG TABLET PO SCH (08:43)
[2019-10-15] MEDS: Cholecalciferol (D-3) 1,000 UNIT (25MCG) TABLET PO SCH (08:43)
[2019-10-15 11:14] VITALS: BP 94/59
== END 2019-10-15 16:38 | disposition home or self-care (01) | DRG 465 ==
LOC: ICNU 19:11 → SUATTDRO 19:11 → 2ANU 10-13 12:25
PROVIDERS: ADMIT Pediatrics; ATTEND Pharmacist

== ENCOUNTER 2019-11-06 05:22 | Inpatient (IN) ==
[2019-11-06] MEDS ORDERED: Naloxone 0.4 MG/ML INJ IVP PRN (09:35)
[2019-11-06 10:50] LABS: Troponin I 0.96 ng/mL (< 0.04)
[2019-11-06] MEDS: Piperacillin/Tazobactam 3.375 GM in 0.9 % Sodium Chloride Mini Bag 100 ML IVPB SCH ×2 (10:57→20:21)
[2019-11-06 11:09] LABS: Calcium 7.9 mg/dL (8.6-10.3); Potassium 4.9 mEq/L (3.5-5.1)
[2019-11-06 11:16] LABS: Hematocrit 23.8 % (37.5-50.1); Hemoglobin 7.6 g/dL (12.9-16.9); Mean Corpuscular HGB Conc 31.9 g/dL (31.6-35.5); Mean Corpuscular Hemoglobin 27.2 pg (28.0-33.3); Mean Corpuscular Volume 85.3 fL (83.0-100.0); Mean Platelet Volume 9.1 fL (9.4-12.4); Platelet Count 210 K/mcL (140-400); Red Blood Count 2.79 M/mcL (4.19-5.50); Red Cell Distribution Width 22.6 % (11.5-14.5); White Blood Count 19.6 K/mcL (4.3-11.1)
[2019-11-06 11:17] LABS: Monocytes # 1.2 K/mcL (0.0-1.3)
[2019-11-06 11:50] LABS: Lymphocytes # 1.2 K/mcL (0.6-4.6); Neutrophils # 17.3 K/mcL (1.6-8.9); Platelet Estimate Normal (Normal)
[2019-11-06] MEDS: Norepinephrine 4 MG in 0.9 % Sodium Chloride 250 ML IVC SCH (18:44)
[2019-11-06] MEDS: *HR* Heparin 5,000 UNIT/ML VIAL SQ SCH (20:21)
[2019-11-07] MEDS: *HR* Heparin 5,000 UNIT/ML VIAL SQ SCH ×5 (04:17→22:19)
[2019-11-07] MEDS: Aspirin 81 MG TAB.CHEW PO SCH (08:43)
[2019-11-07] MEDS: Piperacillin/Tazobactam 3.375 GM in 0.9 % Sodium Chloride Mini Bag 100 ML IVPB SCH ×2 (10:45→21:25)
[2019-11-07] MEDS: Norepinephrine 4 MG in 0.9 % Sodium Chloride 250 ML IVC SCH (15:18)
[2019-11-07 17:46] LABS: Basophils % 0.2 %; Eosinophils # 0.2 K/mcL (0.0-0.6); Eosinophils % 2.4 %; Hematocrit 22.8 % (37.5-50.1); Immature Granulocytes % 0.3 % (0-4); Lymphocytes # 1.1 K/mcL (0.6-4.6); Lymphocytes % 12.9 %; Mean Corpuscular HGB Conc 30.7 g/dL (31.6-35.5); Mean Corpuscular Hemoglobin 27.3 pg (28.0-33.3); Mean Corpuscular Volume 89.1 fL (83.0-100.0); Mean Platelet Volume 9.8 fL (9.4-12.4); Monocytes # 0.7 K/mcL (0.0-1.3); Neutrophils # 6.7 K/mcL (1.6-8.9); Platelet Count 176 K/mcL (140-400); Red Blood Count 2.56 M/mcL (4.19-5.50); Red Cell Distribution Width 23.3 % (11.5-14.5); Segmented Neutrophils % 76.2 %
[2019-11-07 17:48] LABS: White Blood Count 8.8 K/mcL (4.3-11.1)
[2019-11-07 18:10] LABS: Albumin 2.8 g/dL (3.5-5.7); Bilirubin,Total 0.4 mg/dL (0.3-1.0); Calcium 8.5 mg/dL (8.6-10.3); Globulin 2.9 g/dL (2.4-3.5); Magnesium 1.8 mg/dL (1.6-2.6); Potassium 4.1 mEq/L (3.5-5.1); Total Protein 5.7 g/dL (6.4-8.9); Troponin I 0.4 ng/mL (< 0.04)
[2019-11-07 18:11] LABS: Anisocytosis 1+ (Not Present)
[2019-11-07 18:12] LABS: Platelet Estimate Normal (Normal)
[2019-11-07] MEDS: 0.9 % Sodium Chloride 1,000 ML IVC SCH (18:18)
[2019-11-07] MEDS ORDERED: Perflutren Lipid Microsphere 1.3 ML in 0.9 % Sodium Chloride 8.7 ML IVP ONE (20:58)
[2019-11-07] MEDS ORDERED: Divalproex (24 HR) 500 MG TABLET PO SCH (21:00)
[2019-11-08] MEDS: 0.9 % Sodium Chloride 1,000 ML IVC SCH ×3 (03:19→22:50)
[2019-11-08] MEDS: Aspirin 81 MG TAB.CHEW PO SCH (08:45)
[2019-11-08] MEDS: Piperacillin/Tazobactam 3.375 GM in 0.9 % Sodium Chloride Mini Bag 100 ML IVPB SCH ×2 (08:48→15:20)
[2019-11-08] MEDS ORDERED: Loratadine 10 MG TABLET PO SCH (09:00)
[2019-11-08] MEDS: Norepinephrine 4 MG in 0.9 % Sodium Chloride 250 ML IVC SCH (10:22)
[2019-11-08 11:23] LABS: Phosphorous 2.2 mg/dL (2.7-4.5)
[2019-11-08] MEDS ORDERED: Naloxone 0.4 MG/ML INJ IVP PRN (11:46)
[2019-11-08] MEDS: *HR* Heparin 5,000 UNIT/ML VIAL SQ SCH ×2 (14:15→20:33)
[2019-11-08 16:13] LABS: Basophils % 0.3 %; Eosinophils # 0.2 K/mcL (0.0-0.6); Eosinophils % 2.5 %; Hematocrit 28.7 % (37.5-50.1); Immature Granulocytes % 0.3 % (0-4); Lymphocytes # 1.1 K/mcL (0.6-4.6); Lymphocytes % 15.5 %; Mean Corpuscular Hemoglobin 28.1 pg (28.0-33.3); Mean Corpuscular Volume 90.5 fL (83.0-100.0); Mean Platelet Volume 9.6 fL (9.4-12.4); Monocytes # 0.4 K/mcL (0.0-1.3); Monocytes % 5.3 %; Neutrophils # 5.6 K/mcL (1.6-8.9); Platelet Count 225 K/mcL (140-400); Red Blood Count 3.17 M/mcL (4.19-5.50); Red Cell Distribution Width 22.7 % (11.5-14.5); Segmented Neutrophils % 76.1 %; White Blood Count 7.3 K/mcL (4.3-11.1)
[2019-11-08 16:25] LABS: Hemoglobin 8.9 g/dL (12.9-16.9)
[2019-11-08 16:35] LABS: Albumin 3.5 g/dL (3.5-5.7); Albumin/Globulin Ratio 0.9 (1.1-2.2); Bilirubin,Total 0.4 mg/dL (0.3-1.0); Calcium 9.1 mg/dL (8.6-10.3); Globulin 3.8 g/dL (2.4-3.5); Magnesium 1.7 mg/dL (1.6-2.6); Potassium 4.4 mEq/L (3.5-5.1); Total Protein 7.3 g/dL (6.4-8.9)
[2019-11-08 16:48] LABS: Activated Partial Thrombo Time 31.6 Seconds (26.0-36.0); INR 1.1; Prothrombin Time 12.1 Seconds (9.4-12.1)
[2019-11-08] MEDS ORDERED: Piperacillin/Tazobactam 3.375 GM in 0.9 % Sodium Chloride Mini Bag 100 ML IVPB SCH (17:00)
[2019-11-08] MEDS: Divalproex (24 HR) 500 MG TABLET PO SCH (20:21)
[2019-11-09] MEDS: Piperacillin/Tazobactam 3.375 GM in 0.9 % Sodium Chloride Mini Bag 100 ML IVPB SCH ×3 (00:17→15:45)
[2019-11-09] MEDS: *HR* Heparin 5,000 UNIT/ML VIAL SQ SCH ×3 (07:13→21:32)
[2019-11-09] MEDS: Loratadine 10 MG TABLET PO SCH (09:10)
[2019-11-09] MEDS: Aspirin 81 MG TAB.CHEW PO SCH (09:10)
[2019-11-09 16:24] LABS: Basophils % 0.4 %; Eosinophils # 0.2 K/mcL (0.0-0.6); Eosinophils % 3.2 %; Hematocrit 23.2 % (37.5-50.1); Immature Granulocytes % 0.4 % (0-4); Lymphocytes % 19.6 %; Mean Corpuscular HGB Conc 30.6 g/dL (31.6-35.5); Mean Corpuscular Hemoglobin 27.6 pg (28.0-33.3); Mean Corpuscular Volume 90.3 fL (83.0-100.0); Mean Platelet Volume 9.4 fL (9.4-12.4); Monocytes # 0.5 K/mcL (0.0-1.3); Monocytes % 8.5 %; Neutrophils # 3.6 K/mcL (1.6-8.9); Platelet Count 188 K/mcL (140-400); Red Blood Count 2.57 M/mcL (4.19-5.50); Red Cell Distribution Width 21.7 % (11.5-14.5); Segmented Neutrophils % 67.9 %; White Blood Count 5.3 K/mcL (4.3-11.1)
[2019-11-09 16:25] LABS: Hemoglobin 7.1 g/dL (12.9-16.9)
[2019-11-09 16:38] LABS: Calcium 8.3 mg/dL (8.6-10.3); Potassium 4.1 mEq/L (3.5-5.1)
[2019-11-09] MEDS: Divalproex (24 HR) 500 MG TABLET PO SCH (21:32)
[2019-11-10] MEDS: Piperacillin/Tazobactam 3.375 GM in 0.9 % Sodium Chloride Mini Bag 100 ML IVPB SCH ×4 (00:41→23:08)
[2019-11-10 04:48] LABS: Basophils % 0.3 %; Eosinophils # 0.3 K/mcL (0.0-0.6); Eosinophils % 4.9 %; Hematocrit 25.9 % (37.5-50.1); Hemoglobin 8.1 g/dL (12.9-16.9); Immature Granulocytes % 0.3 % (0-4); Lymphocytes # 1.5 K/mcL (0.6-4.6); Lymphocytes % 25.8 %; Mean Corpuscular HGB Conc 31.3 g/dL (31.6-35.5); Mean Corpuscular Hemoglobin 26.9 pg (28.0-33.3); Mean Platelet Volume 9.3 fL (9.4-12.4); Monocytes # 0.5 K/mcL (0.0-1.3); Monocytes % 8.7 %; Neutrophils # 3.5 K/mcL (1.6-8.9); Platelet Count 245 K/mcL (140-400); Red Blood Count 3.01 M/mcL (4.19-5.50); Red Cell Distribution Width 21.2 % (11.5-14.5); White Blood Count 5.8 K/mcL (4.3-11.1)
[2019-11-10 04:59] LABS: Calcium 8.8 mg/dL (8.6-10.3); Magnesium 1.6 mg/dL (1.6-2.6); Potassium 3.8 mEq/L (3.5-5.1)
[2019-11-10] MEDS: *HR* Heparin 5,000 UNIT/ML VIAL SQ SCH ×3 (05:17→23:00)
[2019-11-10] MEDS: Loratadine 10 MG TABLET PO SCH (12:05)
[2019-11-10] MEDS: Finasteride 5 MG TABLET PO SCH (12:05)
[2019-11-10] MEDS: Aspirin 81 MG TAB.CHEW PO SCH (12:05)
[2019-11-10] MEDS: Divalproex (24 HR) 500 MG TABLET PO SCH (23:00)
[2019-11-11] MEDS: *HR* Heparin 5,000 UNIT/ML VIAL SQ SCH ×3 (05:14→21:26)
[2019-11-11] MEDS: Piperacillin/Tazobactam 3.375 GM in 0.9 % Sodium Chloride Mini Bag 100 ML IVPB SCH ×2 (10:24→17:09)
[2019-11-11] MEDS: Aspirin 81 MG TAB.CHEW PO SCH (10:24)
[2019-11-11] MEDS: Finasteride 5 MG TABLET PO SCH (10:25)
[2019-11-11] MEDS: Divalproex (24 HR) 500 MG TABLET PO SCH (21:23)
[2019-11-12] MEDS: Piperacillin/Tazobactam 3.375 GM in 0.9 % Sodium Chloride Mini Bag 100 ML IVPB SCH ×3 (01:05→17:29)
[2019-11-12] MEDS: *HR* Heparin 5,000 UNIT/ML VIAL SQ SCH ×3 (06:49→22:22)
[2019-11-12] MEDS: Finasteride 5 MG TABLET PO SCH (08:47)
[2019-11-12] MEDS: Aspirin 81 MG TAB.CHEW PO SCH (08:47)
[2019-11-12] MEDS: Divalproex (24 HR) 500 MG TABLET PO SCH (22:22)
[2019-11-13] MEDS: Piperacillin/Tazobactam 3.375 GM in 0.9 % Sodium Chloride Mini Bag 100 ML IVPB SCH ×3 (00:20→18:09)
[2019-11-13] MEDS: *HR* Heparin 5,000 UNIT/ML VIAL SQ SCH ×3 (06:54→21:49)
[2019-11-13] MEDS ORDERED: Lidocaine -MPF 2% 2 ML VIAL ONE (07:38)
[2019-11-13] MEDS ORDERED: Ondansetron 4 MG/2 ML VIAL ONE (07:38)
[2019-11-13] MEDS ORDERED: Dexamethasone 4 MG/ML VIAL ONE (07:38)
[2019-11-13] MEDS ORDERED: Haloperidol Lactate 5 MG/ML VIAL IVP ONE ×2 (07:44→14:10)
[2019-11-13] MEDS ORDERED: *HR* Propofol 200 MG/20 ML VIAL IVP ONE (08:22)
[2019-11-13] MEDS ORDERED: *HR* FentaNYL (PF) 100 MCG/2 ML VIAL ONE (08:22)
[2019-11-13] MEDS ORDERED: Ziprasidone 10 MG in Water for inj. (sterile) 0.5 ML IM ONE ×2 (08:53→11:17)
[2019-11-13] MEDS ORDERED: Lidocaine 1% 20 ML MDV ONE (09:14)
[2019-11-13] MEDS ORDERED: *HR* Midazolam HCl 2 MG/2 ML VIAL ONE (09:19)
[2019-11-13] MEDS ORDERED: *HR* PHENYLEPHRINE 1,000 MCG/10 ML SYRINGE IVP ONE (09:41)
[2019-11-13] MEDS ORDERED: EPHEDrine 50 MG/ML VIAL ONE (09:41)
[2019-11-13] MEDS ORDERED: *HR* HYDROmorphone (PF) 1 MG/ML SYRINGE IVP PRN (10:14)
[2019-11-13] MEDS ORDERED: Ondansetron 4 MG/2 ML VIAL IVP ONE (10:14)
[2019-11-13] MEDS ORDERED: Naloxone 0.4 MG/ML INJ IVP PRN (11:17)
[2019-11-13] MEDS ORDERED: *HR* HYDROcodone/Acet 5/325 mg TABLET PO PRN (11:17)
[2019-11-13 14:59] LABS: Basophils % 0.5 %; Eosinophils % 0.2 %; Hematocrit 24.5 % (37.5-50.1); Hemoglobin 7.3 g/dL (12.9-16.9); Immature Granulocytes % 0.9 % (0-4); Lymphocytes # 0.2 K/mcL (0.6-4.6); Lymphocytes % 4.5 %; Mean Corpuscular HGB Conc 29.8 g/dL (31.6-35.5); Mean Corpuscular Hemoglobin 26.8 pg (28.0-33.3); Mean Corpuscular Volume 90.1 fL (83.0-100.0); Mean Platelet Volume 8.9 fL (9.4-12.4); Monocytes # 0.1 K/mcL (0.0-1.3); Monocytes % 1.4 %; Neutrophils # 4.1 K/mcL (1.6-8.9); Platelet Count 231 K/mcL (140-400); Red Blood Count 2.72 M/mcL (4.19-5.50); Red Cell Distribution Width 21.3 % (11.5-14.5); Segmented Neutrophils % 92.5 %; White Blood Count 4.4 K/mcL (4.3-11.1)
[2019-11-13 15:09] LABS: INR 1.2; Prothrombin Time 13.3 Seconds (9.4-12.1)
[2019-11-13 15:21] LABS: Calcium 8.4 mg/dL (8.6-10.3)
[2019-11-13] MEDS: Divalproex (24 HR) 500 MG TABLET PO SCH (21:48)
[2019-11-14] MEDS: Piperacillin/Tazobactam 3.375 GM in 0.9 % Sodium Chloride Mini Bag 100 ML IVPB SCH (01:23)
[2019-11-14] MEDS: *HR* Heparin 5,000 UNIT/ML VIAL SQ SCH ×4 (06:24→20:21)
[2019-11-14] MEDS ORDERED: Ziprasidone 10 MG in Water for inj. (sterile) 0.5 ML IM ONE (07:35)
[2019-11-14] MEDS ORDERED: Haloperidol Lactate 5 MG/ML VIAL IVP ONE ×2 (09:27→10:00)
[2019-11-14] MEDS: Finasteride 5 MG TABLET PO SCH (12:24)
[2019-11-14] MEDS: Aspirin 81 MG TAB.CHEW PO SCH (12:24)
[2019-11-14] MEDS: Cefdinir 300 MG CAPSULE PO SCH ×2 (12:30→18:44)
[2019-11-14] MEDS ORDERED: Haloperidol Lactate 5 MG/ML VIAL IVP PRN (13:59)
[2019-11-14] MEDS: Haloperidol Lactate 5 MG/ML VIAL IVP PRN ×2 (15:01→18:50)
[2019-11-14] MEDS: Divalproex (24 HR) 500 MG TABLET PO SCH (20:19)
[2019-11-15 06:32] LABS: Basophils % 0.5 %; Eosinophils # 0.3 K/mcL (0.0-0.6); Hematocrit 23.2 % (37.5-50.1); Hemoglobin 7.4 g/dL (12.9-16.9); Immature Granulocytes % 0.3 % (0-4); Lymphocytes # 1.8 K/mcL (0.6-4.6); Lymphocytes % 27.3 %; Mean Corpuscular HGB Conc 31.9 g/dL (31.6-35.5); Mean Corpuscular Hemoglobin 27.5 pg (28.0-33.3); Mean Corpuscular Volume 86.2 fL (83.0-100.0); Monocytes # 0.6 K/mcL (0.0-1.3); Monocytes % 9.8 %; Neutrophils # 3.8 K/mcL (1.6-8.9); Platelet Count 325 K/mcL (140-400); Red Blood Count 2.69 M/mcL (4.19-5.50); Red Cell Distribution Width 21.6 % (11.5-14.5); Segmented Neutrophils % 58.1 %; White Blood Count 6.5 K/mcL (4.3-11.1)
[2019-11-15 06:48] LABS: Calcium 8.7 mg/dL (8.6-10.3); Potassium 4.1 mEq/L (3.5-5.1)
[2019-11-15] MEDS: Finasteride 5 MG TABLET PO SCH (07:34)
[2019-11-15] MEDS: Aspirin 81 MG TAB.CHEW PO SCH (07:34)
[2019-11-15] MEDS: Cefdinir 300 MG CAPSULE PO SCH (07:34)
[2019-11-15 12:05] VITALS: BP 115/73
== END 2019-11-15 14:04 | disposition home or self-care (01) | DRG 720 ==
LOC: ICNU 07:10 → SUATTDRO 07:10 → 2ANU 11-08 14:51
PROVIDERS: ADMIT Family Medicine; ATTEND Internal Medicine

== ENCOUNTER 2020-02-09 14:26 | Inpatient (IN) ==
[2020-02-09] MEDS ORDERED: Ondansetron 4 MG/2 ML VIAL IVP ONE (14:57)
[2020-02-09] MEDS ORDERED: *HR* FentaNYL (PF) 100 MCG/2 ML VIAL IVP STA (14:57)
[2020-02-09] MEDS ORDERED: 0.9 % Sodium Chloride 1,000 ML IVC ONE (14:57)
[2020-02-09 15:12] LABS: Basophils % 0.3 %; Eosinophils # 0.1 K/mcL (0.0-0.6); Eosinophils % 1.9 %; Hemoglobin 12.4 g/dL (12.9-16.9); Immature Granulocytes % 0.3 % (0-4); Lymphocytes # 0.8 K/mcL (0.6-4.6); Lymphocytes % 21.4 %; Mean Corpuscular HGB Conc 29.5 g/dL (31.6-35.5); Mean Corpuscular Hemoglobin 25.1 pg (28.0-33.3); Mean Corpuscular Volume 84.8 fL (83.0-100.0); Mean Platelet Volume 9.5 fL (9.4-12.4); Monocytes # 0.4 K/mcL (0.0-1.3); Neutrophils # 2.4 K/mcL (1.6-8.9); Platelet Count 209 K/mcL (140-400); Red Blood Count 4.95 M/mcL (4.19-5.50); Red Cell Distribution Width 15.4 % (11.5-14.5); Segmented Neutrophils % 66.1 %; White Blood Count 3.6 K/mcL (4.3-11.1)
[2020-02-09 15:37] LABS: Albumin 4.2 g/dL (3.5-5.7); Albumin/Globulin Ratio 1.2 (1.1-2.2); Bilirubin,Indirect 0.3 mg/dL (0.0-1.0); Bilirubin,Total 0.3 mg/dL (0.3-1.0); Globulin 3.6 g/dL (2.4-3.5); Potassium 4.3 mEq/L (3.5-5.1); Total Protein 7.8 g/dL (6.4-8.9)
[2020-02-09 15:39] LABS: Troponin I 0.08 ng/mL (< 0.04)
[2020-02-09] MEDS ORDERED: cefTRIAXone 2,000 MG in Water for inj. (sterile) 20 ML IVP ONE (17:59)
[2020-02-09 19:03] LABS: Clarity,Urine Cloudy (Clear); Color,Urine Yellow (Yellow); Urine Specimen Comments Mucoid Specimen
[2020-02-09 19:10] LABS: WBC,Urine Present per hpf (0-3)
[2020-02-09 19:13] LABS: Amorphous Sediment,Urine Present per hpf (Few); Triple Phosphate Crystal,Urine Present
[2020-02-09] MEDS ORDERED: *HR* FentaNYL (PF) 100 MCG/2 ML VIAL IVP ONE (19:15)
[2020-02-09] MEDS ORDERED: 0.9 % Sodium Chloride 1,000 ML IVC STA (19:23)
[2020-02-09] MEDS ORDERED: Ondansetron 4 MG/2 ML VIAL IVP PRN (22:27)
[2020-02-09] MEDS ORDERED: Acetaminophen 325 MG TABLET PO PRN (22:32)
[2020-02-09] MEDS: 0.9 % Sodium Chloride 1,000 ML IVC SCH (23:11)
[2020-02-10 04:13] LABS: Basophils % 0.1 %; Hematocrit 31.9 % (37.5-50.1); Immature Granulocytes % 0.3 % (0-4); Lymphocytes # 0.7 K/mcL (0.6-4.6); Lymphocytes % 9.4 %; Mean Corpuscular HGB Conc 30.7 g/dL (31.6-35.5); Mean Corpuscular Hemoglobin 25.5 pg (28.0-33.3); Mean Corpuscular Volume 83.1 fL (83.0-100.0); Mean Platelet Volume 10.2 fL (9.4-12.4); Monocytes # 0.8 K/mcL (0.0-1.3); Monocytes % 11.3 %; Neutrophils # 5.8 K/mcL (1.6-8.9); Platelet Count 149 K/mcL (140-400); Red Blood Count 3.84 M/mcL (4.19-5.50); Red Cell Distribution Width 15.6 % (11.5-14.5); Segmented Neutrophils % 78.9 %
[2020-02-10 04:16] LABS: White Blood Count 7.4 K/mcL (4.3-11.1)
[2020-02-10 04:17] LABS: Hemoglobin 9.8 g/dL (12.9-16.9)
[2020-02-10 04:39] LABS: Platelet Estimate Normal (Normal)
[2020-02-10 04:40] LABS: Albumin/Globulin Ratio 1.1 (1.1-2.2); Bilirubin,Total 0.2 mg/dL (0.3-1.0); Calcium 8.4 mg/dL (8.6-10.3); Globulin 2.7 g/dL (2.4-3.5); Potassium 4.5 mEq/L (3.5-5.1); Total Protein 5.7 g/dL (6.4-8.9)
[2020-02-10 04:42] LABS: Troponin I 0.84 ng/mL (< 0.04)
[2020-02-10] MEDS ORDERED: *HR* Heparin 5,000 UNIT/ML VIAL IVP ONE (04:48)
[2020-02-10] MEDS ORDERED: *HR* Heparin 5,000 UNIT/ML VIAL IVP PRN ×2 (04:48)
[2020-02-10] MEDS ORDERED: Heparin 25,000 UNIT/250 ML D5W 25,000 UNIT/250 ML IV.SOLN IVC SCH (05:00)
[2020-02-10 06:21] LABS: Hemoglobin 9.4 g/dL (12.9-16.9); Mean Corpuscular HGB Conc 30.3 g/dL (31.6-35.5); Mean Corpuscular Hemoglobin 25.3 pg (28.0-33.3); Mean Corpuscular Volume 83.3 fL (83.0-100.0); Mean Platelet Volume 9.8 fL (9.4-12.4); Platelet Count 137 K/mcL (140-400); Red Blood Count 3.72 M/mcL (4.19-5.50); Red Cell Distribution Width 15.8 % (11.5-14.5); White Blood Count 7.6 K/mcL (4.3-11.1)
[2020-02-10 06:23] LABS: Heparin anti-factor XA UFH < 0.04 IU/mL (0.30-0.70); INR 1.4; Prothrombin Time 15.7 Seconds (9.4-12.1)
[2020-02-10] MEDS: Piperacillin/Tazobactam 3.375 GM in 0.9 % Sodium Chloride Mini Bag 100 ML IVPB SCH ×2 (08:07→15:24)
[2020-02-10] MEDS: 0.9 % Sodium Chloride 1,000 ML IVC SCH (08:08)
[2020-02-10] MEDS: Aspirin 81 MG TAB.CHEW PO SCH (08:08)
[2020-02-10] MEDS: *HR* Heparin 5,000 UNIT/ML VIAL SQ SCH (17:17)
[2020-02-10] MEDS ORDERED: cefTRIAXone 2,000 MG in Water for inj. (sterile) 20 ML IVP SCH (18:00)
[2020-02-11] MEDS: Piperacillin/Tazobactam 3.375 GM in 0.9 % Sodium Chloride Mini Bag 100 ML IVPB SCH ×3 (01:21→16:10)
[2020-02-11] MEDS: *HR* OxyCODONE Immed Rel 5 MG TABLET PO PRN (04:34)
[2020-02-11 06:25] LABS: Hematocrit 29.6 % (37.5-50.1); Hemoglobin 9.3 g/dL (12.9-16.9); Mean Corpuscular HGB Conc 31.4 g/dL (31.6-35.5); Mean Corpuscular Hemoglobin 25.9 pg (28.0-33.3); Mean Corpuscular Volume 82.5 fL (83.0-100.0); Mean Platelet Volume 10.2 fL (9.4-12.4); Platelet Count 159 K/mcL (140-400); Red Blood Count 3.59 M/mcL (4.19-5.50); Red Cell Distribution Width 15.9 % (11.5-14.5); White Blood Count 9.1 K/mcL (4.3-11.1)
[2020-02-11 06:47] LABS: Calcium 8.9 mg/dL (8.6-10.3)
[2020-02-11 06:48] LABS: % Iron Saturation 6 % (20-55); Iron 12 mcg/dL (65-175); Transferrin 149 mg/dL (203-362)
[2020-02-11 07:06] LABS: Ferritin 78 ng/mL (20-250)
[2020-02-11 07:12] LABS: Vitamin B12 479 pg/mL (250-1100)
[2020-02-11] MEDS ORDERED: Iron Sucrose Complex 400 MG in 0.9 % Sodium Chloride 250 ML IVPB ONE (07:25)
[2020-02-11] MEDS: *HR* Heparin 5,000 UNIT/ML VIAL SQ SCH ×2 (08:15→16:11)
[2020-02-11] MEDS: Aspirin 81 MG TAB.CHEW PO SCH (08:18)
[2020-02-11 09:11] LABS: Folate > 22.3 ng/mL (3.0-16.0)
[2020-02-11] MEDS ORDERED: *HR* Heparin 5,000 UNIT/ML VIAL SQ SCH (18:00)
[2020-02-12] MEDS: Piperacillin/Tazobactam 3.375 GM in 0.9 % Sodium Chloride Mini Bag 100 ML IVPB SCH ×3 (00:09→15:48)
[2020-02-12 08:38] LABS: Hematocrit 32.8 % (37.5-50.1); Hemoglobin 9.9 g/dL (12.9-16.9); Mean Corpuscular HGB Conc 30.2 g/dL (31.6-35.5); Mean Corpuscular Hemoglobin 24.8 pg (28.0-33.3); Mean Corpuscular Volume 82.2 fL (83.0-100.0); Mean Platelet Volume 9.6 fL (9.4-12.4); Platelet Count 207 K/mcL (140-400); Red Blood Count 3.99 M/mcL (4.19-5.50); White Blood Count 8.9 K/mcL (4.3-11.1)
[2020-02-12 08:59] LABS: Calcium 8.9 mg/dL (8.6-10.3); Potassium 4.3 mEq/L (3.5-5.1)
[2020-02-12] MEDS: *HR* Heparin 5,000 UNIT/ML VIAL SQ SCH ×2 (09:25→15:51)
[2020-02-12] MEDS: Finasteride 5 MG TABLET PO SCH (09:34)
[2020-02-12] MEDS: Cholecalciferol (D-3) 1,000 UNIT (25MCG) TABLET PO SCH (09:35)
[2020-02-12] MEDS: Cyanocobalamin (B-12) 1,000 MCG TABLET PO SCH (09:35)
[2020-02-12] MEDS: Aspirin Enteric Coated 81 MG Tablet PO SCH (09:35)
[2020-02-12] MEDS: *HR* OxyCODONE Immed Rel 5 MG TABLET PO PRN (20:38)
[2020-02-13] MEDS: Piperacillin/Tazobactam 3.375 GM in 0.9 % Sodium Chloride Mini Bag 100 ML IVPB SCH ×2 (00:08→08:49)
[2020-02-13] MEDS: *HR* Heparin 5,000 UNIT/ML VIAL SQ SCH (05:58)
[2020-02-13 07:25] VITALS: BP 105/64
[2020-02-13] MEDS: Cyanocobalamin (B-12) 1,000 MCG TABLET PO SCH (08:49)
[2020-02-13] MEDS: Cholecalciferol (D-3) 1,000 UNIT (25MCG) TABLET PO SCH (08:49)
[2020-02-13] MEDS: Aspirin Enteric Coated 81 MG Tablet PO SCH (08:49)
[2020-02-13] MEDS: Finasteride 5 MG TABLET PO SCH (08:49)
== END 2020-02-13 13:17 | disposition home health service (06) | DRG 466 ==
LOC: EMEROOARM 14:26 → 2ANU 14:26 → SUATTDRO 02-10 12:48
PROVIDERS: ADMIT Internal Medicine; ATTEND Internal Medicine

== ENCOUNTER 2021-10-16 22:48 | Observation (INO) ==
[2021-10-16 22:58] VITALS: TEMP 97.6
[2021-10-17] MEDS ORDERED: Acetaminophen 325 MG TABLET PO PRN (03:20)
[2021-10-17] MEDS ORDERED: *HR* Promethazine 25 MG/ML VIAL IM PRN (03:20)
[2021-10-17] MEDS ORDERED: Naloxone 0.4 MG/ML INJ IVP PRN (03:20)
[2021-10-17] MEDS ORDERED: Melatonin 3 MG TABLET PO PRN (03:20)
[2021-10-17] MEDS ORDERED: Ondansetron 4 MG/2 ML VIAL IVP PRN (03:20)
[2021-10-17 03:29] LABS: Basophils % 0.3 %; Eosinophils # 0.1 K/mcL (0.0-0.6); Eosinophils % 3.4 %; Hematocrit 37.4 % (37.5-50.1); Hemoglobin 11.8 g/dL (12.9-16.9); Immature Granulocytes % 0.3 % (0-4); Lymphocytes # 1.3 K/mcL (0.6-4.6); Lymphocytes % 33.5 %; Mean Corpuscular HGB Conc 31.6 g/dL (31.6-35.5); Mean Corpuscular Hemoglobin 26.1 pg (28.0-33.3); Mean Corpuscular Volume 82.7 fL (83.0-100.0); Mean Platelet Volume 9.9 fL (9.4-12.4); Monocytes # 0.6 K/mcL (0.0-1.3); Monocytes % 16.5 %; Neutrophils # 1.8 K/mcL (1.6-8.9); Platelet Count 189 K/mcL (140-400); Red Blood Count 4.52 M/mcL (4.19-5.50); Red Cell Distribution Width 15.6 % (11.5-14.5); White Blood Count 3.9 K/mcL (4.3-11.1)
[2021-10-17 03:44] LABS: Albumin 3.7 g/dL (3.5-5.7); Albumin/Globulin Ratio 1.1 (1.1-2.2); Bilirubin,Total 0.4 mg/dL (0.3-1.0); Calcium 9.2 mg/dL (8.6-10.3); Globulin 3.5 g/dL (2.4-3.5); Potassium 4.5 mEq/L (3.5-5.1); Total Protein 7.2 g/dL (6.4-8.9)
[2021-10-17 05:49] LABS: INR 1.2; Prothrombin Time 13.4 Seconds (9.4-12.1)
[2021-10-17 07:00] VITALS: BP 149/79; PULSE 71; O2SAT 96
[2021-10-17] MEDS ORDERED: Piperacillin/Tazobactam 3.375 GM in 0.9 % Sodium Chloride Mini Bag 100 ML IVPB SCH (08:00)
[2021-10-17] MEDS ORDERED: Aspirin Enteric Coated 81 MG Tablet PO SCH (09:00)
== END 2021-10-17 09:00 | disposition left against medical advice (07) ==
LOC: EMEROOARM 22:48 → 3ANU 22:48
PROVIDERS: ADMIT Internal Medicine; ATTEND Internal Medicine

== ENCOUNTER 2022-01-19 17:46 | Observation (INO) ==
[2022-01-19 19:06] LABS: Basophils % 0.4 %; Eosinophils # 0.3 K/mcL (0.0-0.6); Eosinophils % 4.6 %; Hemoglobin 10.1 g/dL (12.9-16.9); Immature Granulocytes % 0.4 % (0-4); Lymphocytes # 0.9 K/mcL (0.6-4.6); Lymphocytes % 15.3 %; Mean Corpuscular HGB Conc 29.7 g/dL (31.6-35.5); Mean Corpuscular Hemoglobin 22.8 pg (28.0-33.3); Mean Corpuscular Volume 76.7 fL (83.0-100.0); Mean Platelet Volume 9.3 fL (9.4-12.4); Monocytes # 0.8 K/mcL (0.0-1.3); Neutrophils # 3.7 K/mcL (1.6-8.9); Platelet Count 189 K/mcL (140-400); Red Blood Count 4.43 M/mcL (4.19-5.50); Red Cell Distribution Width 16.9 % (11.5-14.5); Segmented Neutrophils % 65.3 %; White Blood Count 5.6 K/mcL (4.3-11.1)
[2022-01-19 19:09] LABS: Bilirubin,Urine Negative (Negative); Blood,Urine Large (Negative); Clarity,Urine Ex.Turbid (Clear); Color,Urine Dark-Red (Yellow); Glucose,Urine (UA) Normal (Normal); Ketones,Urine Negative (Negative); Leukocyte Esterase,Urine Large (Negative); Nitrite,Urine Negative (Negative); PH,Urine 6.5 pH Units (5.0-8.0); Protein,Urine >=300 mg/dL (Neg-Trace); Specific Gravity,Urine 1.017 (1.010-1.025); Urobilinogen,Urine Normal (Normal)
[2022-01-19 19:26] LABS: Calcium 9.4 mg/dL (8.6-10.3); Potassium 4.2 mEq/L (3.5-5.1)
[2022-01-19 19:54] LABS: INR 1.2; Prothrombin Time 13.5 Seconds (9.4-12.1)
[2022-01-19 19:57] LABS: Activated Partial Thrombo Time 33.3 Seconds (26.0-36.0)
[2022-01-19] MEDS ORDERED: Ondansetron ODT 4 MG TAB.RAPDIS SL PRN (23:11)
[2022-01-19] MEDS ORDERED: Naloxone 0.4 MG/ML INJ IVP PRN (23:11)
[2022-01-19] MEDS ORDERED: Melatonin 3 MG TABLET PO PRN (23:11)
[2022-01-19] MEDS ORDERED: Ipratropium/Albuterol Neb 3 ML IH PRN (23:14)
[2022-01-20] MEDS ORDERED: QUEtiapine Fumarate 25 MG TABLET PO SCH (00:45)
[2022-01-20] MEDS: Acetaminophen 325 MG TABLET PO PRN ×2 (00:53→08:22)
[2022-01-20 01:44] LABS: Basophils % 0.4 %; Eosinophils # 0.2 K/mcL (0.0-0.6); Eosinophils % 2.5 %; Immature Granulocytes % 0.3 % (0-4); Lymphocytes # 0.9 K/mcL (0.6-4.6); Lymphocytes % 12.1 %; Mean Corpuscular HGB Conc 30.3 g/dL (31.6-35.5); Mean Corpuscular Hemoglobin 23.1 pg (28.0-33.3); Mean Corpuscular Volume 76.4 fL (83.0-100.0); Mean Platelet Volume 9.6 fL (9.4-12.4); Monocytes # 0.9 K/mcL (0.0-1.3); Monocytes % 12.6 %; Neutrophils # 5.1 K/mcL (1.6-8.9); Platelet Count 183 K/mcL (140-400); Red Blood Count 4.32 M/mcL (4.19-5.50); Red Cell Distribution Width 16.8 % (11.5-14.5); Segmented Neutrophils % 72.1 %; White Blood Count 7.1 K/mcL (4.3-11.1)
[2022-01-20 01:50] LABS: INR 1.2; Prothrombin Time 13.7 Seconds (9.4-12.1)
[2022-01-20 01:53] LABS: Activated Partial Thrombo Time 32.2 Seconds (26.0-36.0)
[2022-01-20 02:03] LABS: Albumin 3.6 g/dL (3.5-5.7); Bilirubin,Total 0.4 mg/dL (0.3-1.0); Calcium 9.3 mg/dL (8.6-10.3); Chol/HDL Ratio 5.5 (0-4.9); Globulin 3.7 g/dL (2.4-3.5); Phosphorous 2.6 mg/dL (2.7-4.5); Potassium 4.1 mEq/L (3.5-5.1); Total Protein 7.3 g/dL (6.4-8.9)
[2022-01-20 11:04] VITALS: BP 125/82
[2022-01-20 15:10] VITALS: PULSE 65; TEMP 97.9; O2SAT 96
== END 2022-01-20 15:46 | disposition home or self-care (01) ==
LOC: EMEROOARM 17:46 → 3ANU 17:46 → SUATTDRO 22:55 → 3ANU 23:28
PROVIDERS: ADMIT Internal Medicine; ATTEND Student in an Organized Health Care Education/Training Program